=== PATIENT | male | born 1995 | race Caucasian/White ===

== ENCOUNTER 2018-04-14 16:11 | Emergency (ER) | payer OTHER ==
[~2018-04-14] VITALS: Ht 185.4 cm; Wt 79.4 kg
[2018-04-14 16:15] VITALS: Ht 185.4 cm; Wt 79.4 kg
[2018-04-14 19:36] VITALS: BP 121/70
== END 2018-04-14 19:37 | disposition home or self-care (01) ==
LOC: ED 16:11
DX: S16.1XXA Strain of muscle, fascia and tendon at neck level, initial encounter (principal); J93.9 Pneumothorax, unspecified; Q67.5 Congenital deformity of spine; W51.XXXA Accidental striking against or bumped into by another person, initial encounter; Y93.89 Activity, other specified; Y92.89 Other specified places as the place of occurrence of the external cause; Y99.8 Other external cause status
CPT/HCPCS: J1885; Q0092

== ENCOUNTER 2018-04-15 10:09 | Emergency (ER) | payer OTHER ==
[~2018-04-15] VITALS: Ht 182.9 cm; Wt 76.7 kg
[2018-04-15 10:12] VITALS: Ht 182.9 cm; Wt 76.7 kg
[2018-04-15 12:23] VITALS: BP 135/70
== END 2018-04-15 12:24 | disposition home or self-care (01) ==
LOC: ED 10:09
DX: J93.83 Other pneumothorax (principal); S13.4XXA Sprain of ligaments of cervical spine, initial encounter; Z98.890 Other specified postprocedural states; X58.XXXA Exposure to other specified factors, initial encounter; Y93.89 Activity, other specified; Y92.89 Other specified places as the place of occurrence of the external cause; Y99.8 Other external cause status
CPT/HCPCS: Q0092